=== PATIENT | male | born 1980 | race Caucasian/White ===

== ENCOUNTER → 2018-07-18 | Outpatient (REF) | payer BC ==
[2018-07-18 17:07] LABS: PLATELET COUNT, AUTOMATED 368 K/uL (150-450)
== END ==
PROVIDERS: ATTEND Nurse Practitioner Family
DX: R11.0 Nausea (principal); R05 Cough
CPT/HCPCS: 82040; 82247; 82310; 82374; 82435; 82565; 82947; 84075; 84132; 84155; 84295; 84450; 84460; 84520; 85025

== ENCOUNTER → 2018-07-21 | Outpatient (REF) | payer BC ==
[2018-07-21 11:41] LABS: PLATELET COUNT, AUTOMATED 385 K/uL (150-450)
== END ==
PROVIDERS: ATTEND Nurse Practitioner Family
DX: D72.829 Elevated white blood cell count, unspecified (principal)
CPT/HCPCS: 82040; 82247; 82310; 82374; 82435; 82565; 82947; 84075; 84132; 84155; 84295; 84450; 84460; 84520; 85025